=== PATIENT | female | born 2000 ===

== ENCOUNTER 2024-01-15 15:37 | Outpatient (AMB) | payer OTHER, SELFPAY ==
--- NOTE | 2024-01-15 16:11 | MHC.OFFWIV ---
Intake Vital Signs 01/15/24 16:12 Height 4 ft 9 in Weight 110 lb BMI 23.8 BP 112/74 Blood Pressure Location Rt brachial Position Sitting Pulse 76 Pulse Source Pulse Oximeter Pulse Oximetry (%) 98 Oxygen Delivery Method Room Air Intake Visit Reasons: [employer] Bilateral heel pain Intake Note: Patient here for lump on right ankle bone and does swell up which has been present for a couple of years. Patient Tobacco Use Status: Never used Tobacco Do you need a note to return to daycare/school/sports/work: No HPI HPI Comments History of Present Illness Details Patient presents to the walk-in today for sick visit Complaining of bilateral ankle pain for several years Reports occasionally there will be swelling over lateral malleolus bilaterally with tenderness Pain improves with ibuprofen but mom is concerned about giving her ibuprofen on a routine basis [facility] Social History Patient Tobacco Use Status: Never used Tobacco Review of Systems Const All systems reviewed & are unremarkable except as noted in HPI and below Physical Exam Vital Signs: Last Vital Signs Pulse 76 01/15/24 16:12 BP 112/74 01/15/24 16:12 Pulse Ox 98 01/15/24 16:12 Oxygen Delivery Method Room Air 01/15/24 16:12 BMI result Body Mass Index 23.8 General: awake, alert, oriented. Answers questions appropriately. Fully engaged in examination. Skin: warm, dry, intact HEENT: Normocephalic. Hearing intact. Cardiac: External chest normal in appearance. Respiratory: No cough, audible wheezing or stridor. Abdomen: without gross distension. MS: Bilateral ankles nontender to palpation, full range of motion, no obvious swelling or deformity. Neurological: Oriented to person, place, time and situation. Thought process intact. No gait abnormalities appreciated. Psychiatric: Appropriate mood and affect. Good judgment and insight. Assessment & Plan Assessment & Plan (1) Bilateral ankle pain: Code(s): M25.571 - Pain in right ankle and joints of right foot; M25.572 - Pain in left ankle and joints of left foot Plan Continue ibuprofen as needed Referral placed for Orthopedics for evaluation management Patient to establish care with PCP, numbers given for primary care providers at [facility] who are accepting new patients. All questions and concerns were answered, patient agrees with the plan. Follow up with Orthopedics, PCP or return here for any new worsening symptoms. Orders: Referrals Orthopedics Referral M25.571 - Pain in right ankle and joints of right foot, M25.572 - Pain in left ankle and joints of left foot Coding Level of Care Code Est Pt Level 3 (41245) Diagnoses Bilateral ankle pain M25.571; M25.572
[2024-01-15 16:12] VITALS: BP 112/74; PULSE 76; O2SAT 98; BMI 23.8
== END 2024-01-15 16:39 | disposition home or self-care (01) ==
PROVIDERS: Visit Provider Registered Nurse Emergency
DX: M25.571 Pain in right ankle and joints of right foot (principal); M25.572 Pain in left ankle and joints of left foot
CPT/HCPCS: 99213